=== PATIENT | female | born 2000 | race Caucasian/White ===

== ENCOUNTER 2019-08-19 19:49 | Emergency (ER) | payer OTHER ==
[~2019-08-19] VITALS: Ht 165.1 cm; Wt 63.6 kg
[2019-08-19] MEDS ORDERED: PERTUSS(ACELL),DIPH,TET VAC/PF 0.5 ML VIAL IM ONE (20:15)
[2019-08-19] MEDS ORDERED: LIDOCAINE 1% 10 ML VIAL INJ ONE (21:30)
[2019-08-19] MEDS ORDERED: BACITRACIN 0.9 GM PACKET OINTMENT TP ONE (22:00)
[2019-08-19 22:20] VITALS: BP 123/79
== END 2019-08-19 22:25 | disposition home or self-care (01) ==
LOC: EMS 19:53 → EDBD 19:53 → EMS 22:25
DX: S71.111A Laceration without foreign body, right thigh, initial encounter (principal); X99.1XXA Assault by knife, initial encounter; Y93.89 Activity, other specified; Y92.89 Other specified places as the place of occurrence of the external cause; Y99.8 Other external cause status
CPT/HCPCS: 12001; 90471; 90715; 99283; J3490; 12002

== ENCOUNTER 2019-09-09 12:24 | Emergency (ER) | payer OTHER ==
[~2019-09-09] VITALS: Ht 157.5 cm; Wt 72.7 kg
[2019-09-09 12:26] VITALS: BP 141/92
[2019-09-09] MEDS ORDERED: BACL10TA PO (12:30)
== END 2019-09-09 13:45 | disposition home or self-care (01) ==
LOC: EMS 12:25
DX: S71.111D Laceration without foreign body, right thigh, subsequent encounter (principal); R03.0 Elevated blood-pressure reading, without diagnosis of hypertension; J45.901 Unspecified asthma with (acute) exacerbation; F12.90 Cannabis use, unspecified, uncomplicated; F17.210 Nicotine dependence, cigarettes, uncomplicated; Z48.02 Encounter for removal of sutures; X99.1XXD Assault by knife, subsequent encounter

== ENCOUNTER 2021-11-17 17:12 | Emergency (ER) | payer MEDICAID, OTHER ==
[~2021-11-17] VITALS: Ht 162.6 cm; Wt 63.6 kg
[~2021-11-17 17:12] MED LIST: BACL10TA PO
[2021-11-17 19:00] VITALS: BP 117/78
[2021-11-17 20:06] LABS: APPEARANCE,URINE TURBID (CLEAR); GLUCOSE, URINE (UA) NEGATIVE (NEGATIVE); KETONES,URINE TRACE mg/dL (NEGATIVE); LEUKOCYTE ESTERASE ,URINE SMALL (NEGATIVE); NITRATE,URINE NEGATIVE (NEGATIVE); OCCULT BLOOD,URINE TRACE (NEGATIVE); PROTEIN,URINE TRACE (NEGATIVE)
[2021-11-17 20:12] LABS: BILIRUBIN,URINE PRELIM. POSITIVE (NEGATIVE)
[2021-11-17 20:13] LABS: BACTERIA,URINE Moderate /HPF (None Seen)
[2021-11-17] MEDS ORDERED: CEPHALEXIN MONOHYDRATE 500 MG CAPSULE PO ONE (20:45)
== END 2021-11-17 21:27 | disposition home or self-care (01) ==
LOC: EMS 17:13
DX: N39.0 Urinary tract infection, site not specified (principal); F17.210 Nicotine dependence, cigarettes, uncomplicated; Z79.899 Other long term (current) drug therapy
CPT/HCPCS: 81001; 87086; 87491; 87591; 99283

== ENCOUNTER 2022-02-12 21:15 | Emergency (ER) | payer MEDICAID ==
[~2022-02-12] VITALS: Ht 157.5 cm; Wt 63.6 kg
[2022-02-12 21:18] VITALS: BP 118/82
== END 2022-02-12 22:48 | disposition left against medical advice (07) ==
LOC: EMS 21:17
DX: M54.2 Cervicalgia (principal); F15.90 Other stimulant use, unspecified, uncomplicated; F17.210 Nicotine dependence, cigarettes, uncomplicated
CPT/HCPCS: 99281; Z7502

== ENCOUNTER 2023-12-18 23:31 | Emergency (ER) | payer SELFPAY ==
[~2023-12-18] VITALS: Ht 165.1 cm; Wt 116.0 kg
[2023-12-19 00:28] LABS: BASOPHILS % (AUTO) 0.8 % (0.0-2.0); EOSINOPHILS % (AUTO) 0.1 % (1.0-6.0); HEMOGLOBIN 13.4 g/dL (12.0-16.0); LYMPHOCYTES # (AUTO) 1.8 K/uL (1.0-4.8); LYMPHOCYTES % (AUTO) 28.2 % (22.0-44.0); MEAN CORPUSCULAR HEMOGLOBIN 32.6 pg (26.0-34.0); MEAN CORPUSCULAR HGB CONC 34.2 G/dL (31.0-37.0); MEAN CORPUSCULAR VOLUME 95 fL (80-100); MONOCYTES # (AUTO) 0.8 K/uL (0.1-1.0); NEUTROPHILS # (AUTO) 3.7 K/uL (1.8-7.7); NEUTROPHILS % (AUTO) 58.9 % (40.0-70.0); PLATELET COUNT (AUTO) 318 K/uL (150-450); RED CELL DISTRIBUTION WIDTH 13.7 % (11.5-14.5); WHITE BLOOD COUNT (AUTO) 6.3 K/uL (4.5-11.0)
[2023-12-19 00:39] LABS: ANION GAP 7 mmol/L (8-16); CALCIUM, TOTAL 9.5 mg/dL (8.8-10.5); CARBON DIOXIDE 29 mmol/L (22-29); CHLORIDE 103 mmol/L (98-107); CREATININE 0.65 mg/dL (0.60-1.30); GLOMERULAR FILTR. RATE CALC > 60 mL/min (>60); GLUCOSE,RANDOM 114 mg/dL (70-110); POTASSIUM 3.9 mmol/L (3.5-5.1); SODIUM SERUM 139 mmol/L (136-145); UREA NITROGEN, BLOOD 9 mg/dL (7-18)
[2023-12-19 00:44] LABS: ALANINE AMINOTRANSFERASE 94 U/L (12-78); ALBUMIN 3.9 g/dL (3.4-5.0); ALKALINE PHOSPHATASE 97 U/L (46-116); ASPARTATE AMINOTRANSFERASE 58 U/L (15-37); BILIRUBIN,TOTAL 0.4 mg/dL (0.1-1.0); TOTAL PROTEIN, SERUM 7.7 g/dL (6.4-8.2)
[2023-12-19 01:12] LABS: ALCOHOL, BLOOD (SERUM) < 3 mg/dL (0-10)
[2023-12-19 01:31] LABS: PH,URINE DRUG SCREEN 7.5 (5.0-8.0)
[2023-12-19 01:37] LABS: ALCOHOL, URINE DRUG SCREEN NEGATIVE (NEGATIVE); AMPHET/METH SCREEN,URINE NEGATIVE (NEGATIVE); BARBITURATE SCREEN, URINE NEGATIVE (NEGATIVE); BENZODIAZEPINES SCREEN,URINE NEGATIVE (NEGATIVE); CANNABINOID SCREEN,URINE NEGATIVE (NEGATIVE); COCAINE SCREEN,URINE NEGATIVE (NEGATIVE); METHADONE SCREEN, URINE NEGATIVE (NEGATIVE); OPIATE SCREEN,URINE NEGATIVE (NEGATIVE); PHENCYCLIDINE SCREEN,URINE NEGATIVE (NEGATIVE)
[2023-12-19 04:34] VITALS: TEMP 98.1
[2023-12-19 05:25] LABS: BASOPHILS % (AUTO) 0.3 % (0.0-2.0); EOSINOPHILS % (AUTO) 0.5 % (1.0-6.0); HEMOGLOBIN 13.3 g/dL (12.0-16.0); LYMPHOCYTES # (AUTO) 1.6 K/uL (1.0-4.8); LYMPHOCYTES % (AUTO) 27.4 % (22.0-44.0); MEAN CORPUSCULAR HEMOGLOBIN 32.6 pg (26.0-34.0); MEAN CORPUSCULAR VOLUME 96 fL (80-100); MONOCYTES # (AUTO) 0.7 K/uL (0.1-1.0); MONOCYTES % (AUTO) 12.7 % (2.0-9.0); NEUTROPHILS # (AUTO) 3.4 K/uL (1.8-7.7); NEUTROPHILS % (AUTO) 59.1 % (40.0-70.0); PLATELET COUNT (AUTO) 306 K/uL (150-450); RED BLOOD CELL COUNT(AUTO) 4.07 MIL/uL (4.00-5.20); RED CELL DISTRIBUTION WIDTH 13.5 % (11.5-14.5); WHITE BLOOD COUNT (AUTO) 5.8 K/uL (4.5-11.0)
[2023-12-19 05:33] LABS: ANION GAP 9 mmol/L (8-16); CALCIUM, TOTAL 9.2 mg/dL (8.8-10.5); CARBON DIOXIDE 30 mmol/L (22-29); CHLORIDE 101 mmol/L (98-107); CREATININE 0.68 mg/dL (0.60-1.30); GLOMERULAR FILTR. RATE CALC > 60 mL/min (>60); GLUCOSE,RANDOM 111 mg/dL (70-110); POTASSIUM 3.8 mmol/L (3.5-5.1); SODIUM SERUM 140 mmol/L (136-145); UREA NITROGEN, BLOOD 8 mg/dL (7-18)
[2023-12-19 05:39] LABS: ALANINE AMINOTRANSFERASE 87 U/L (12-78); ALBUMIN 3.7 g/dL (3.4-5.0); ALKALINE PHOSPHATASE 95 U/L (46-116); ASPARTATE AMINOTRANSFERASE 56 U/L (15-37); BILIRUBIN,TOTAL 0.4 mg/dL (0.1-1.0); TOTAL PROTEIN, SERUM 7.3 g/dL (6.4-8.2)
[2023-12-19] MEDS: LORazepam 1 MG TABLET PO ONE (05:41)
[2023-12-19] MEDS: OLANZapine 5 MG TABLET PO ONE (05:42)
[2023-12-19 05:53] LABS: ALCOHOL, BLOOD (SERUM) < 3 mg/dL (0-10)
[2023-12-19 08:55] VITALS: BP 137/88; PULSE 91; RESP 18
== END 2023-12-19 09:45 | disposition home or self-care (01) ==
LOC: EMS 23:32
DX: F29 Unspecified psychosis not due to a substance or known physiological condition (principal); F17.210 Nicotine dependence, cigarettes, uncomplicated; F15.90 Other stimulant use, unspecified, uncomplicated
CPT/HCPCS: 99283; 85025; 36415; 80307; 80053; G0480